=== PATIENT | female | born 1940 | race African-American/Black ===

== ENCOUNTER 2016-07-08 14:04 | Inpatient (IN) | payer OTHER ==
[~2016-07-08] VITALS: Ht 167.6 cm; Wt 107.3 kg
--- NOTE | ~2016-07-08 | HC ---
[facility] [place] [address] CONSULTATION Name: TRUDY ORTIZ Room #: 241-P [facility] IN ..#: [id number] Admission: 07/08/16 Attend Phys: Juanjo Hernandez MD Discharge: Date of : 42 Report #: [id number] THIS REPORT FOR: //name// CC: Yevgeniy Hernandez NEUROLOGY CONSULTATION HISTORY OF PRESENT ILLNESS: The patient is a 76-year-old pleasantly confused female. Neurology consult is requested because the patient has been in the hospital hallucinating. Apparently, the patient was also having some difficulty with cognition prior to hospital admission. Unfortunately, the patient is unable to provide any history, but according to the information from the medical record, the patient was admitted for confusion and delusion. She was also found to be less responsive. An arterial blood gas showed an acute hypoxic respiratory failure. At that time, the patient was not able to provide much history. Her son was present and stated that about a week or so ago, the patient had an altered mental status. At times, she was quite coherent and alert, but had an underlying mild cognitive deficit that became worse. The patient had been dealing with chronic pain and had been taking hydrocodone and Tylenol No. 3. From time to time, the patient had been completely clear and at other times she seemed very drowsy. Lab work and CT scan of the brain were unremarkable. In 2011, the patient had an MRI of the brain that showed general atrophy. PAST MEDICAL HISTORY: COPD, degenerative lumbar spinal stenosis, mild cognitive impairment, gout, ischemic heart disease, hypertension, dyslipidemia, diverticulitis, shingles and ventral hernia. PAST SURGICAL HISTORY: Three-vessel cardiac bypass, cystectomy and colectomy. MEDICATIONS: Calcium, multivitamin, aspirin 81 mg daily, fish oil, vitamin E, stool softener, ProAir, gabapentin 300 mg t.i.d., Lasix 40 mg daily, hydrocodone 5 mg p.r.n., potassium 10 mEq daily, Prilosec 20 mg daily and Norvasc 10 mg daily. ALLERGIES: LORAZEPAM, MORPHINE, IBUPROFEN and FENTANYL. PHYSICAL EXAMINATION: Vital signs: Heart rate 98, respirations 18 and blood pressure 139/84. LABORATORY DATA: White blood cell count 10.1, hemoglobin 12.4, hematocrit 40, MCV 91.5 and platelet count 242,000. Urinalysis, trace protein, 2+ leukocyte esterase and a few bacteria. Chemistry: Sodium 141, potassium 4.5, chloride 105, carbon dioxide 37, BUN 16, creatinine 0.8, GFR 85, glucose 156 and calcium 8.5. Total bilirubin 0.3, AST 29, ALT 32, alkaline phosphatase [address] [address] CONSULTATION Name: TRUDY ORTIZ Viviana Room #: 241-P ADM IN M.R.#: [id number] Admission: 07/08/16 Attend Phys: Juanjo Hernandez MD Discharge: Date of : 42 Report #: [id number]. TSH 1.797. Toxicology positive for opiates. IMAGING: CT scan of the head demonstrates no acute intracranial abnormality. NEUROLOGICAL EXAMINATION: Cranial nerves 2-12 are grossly intact. Motor exam demonstrates symmetrical strength in all 4 extremities, with tone and bulk normal. Reflexes are trace throughout. Plantar responses are flexor. Coordination demonstrates intact [id number]. Casual gait was not tested. IMPRESSION: This patient may have underlying dementia. However, the patient is on steroids, which can cause hallucinations, although I realized she was having difficulty prior to that time, but at that time, she was also hypoxic and I would like to see how she does once she is weaned from the steroids and do a more formal mini cognitive testing. The patient may eventually be a good candidate for neuropsych testing as an outpatient. At this point, I agree with psychiatry and I would not give this patient any type of sedation at all. I thank you for your kind referral of the patient and will continue to follow her with you. <ELECTRONICALLY SIGNED> By: Natty Ramirez DO 07/10/16 [id number] Natty Ramirez DO /nt
--- NOTE | ~2016-07-08 | HC ---
[facility] [address] CONSULTATION Name: TRUDY ORTIZ Room #: 241-P [facility] IN M.R.#: [id number] Admission: 07/08/16 Attend Phys: Juanjo Hernandez MD Discharge: Date of : 42 Report #: [id number] THIS REPORT FOR: //name// CC: Yevgeniy Hernandez PRIMARY CARE PHYSICIAN: Yevgeniy Mccoy MD. REFERRAL PHYSICIAN: Juanjo Hernandez MD. REASON FOR REFERRAL: Acute hypoxic respiratory failure. HISTORY OF PRESENT ILLNESS: The patient is a 76-year-old female who was admitted yesterday for confusions and delusions. This morning, she was found to be less responsive. Arterial blood gas shows an acute hypercapnic hypoxic respiratory failure. A pulmonary consultation was requested. The patient is not able to provide much history. The son who was present was able to. The patient's mental status started to change about a week or 2 ago. She was felt to be delusional. Her mentation waxes and wanes. At times, she is quite coherent and alert. The patient is felt to have mild cognitive deficit in the past. With worsening symptom, she was electively admitted yesterday. Currently, she is on noninvasive positive pressure ventilation, she is arousable, but falls to sleep quite usually. According to the son, she has also been dealing with chronic pain. She has been on hydrocodone in the past. Most recently, pain medication has been switched to Tylenol No. 3. The son denies any past history of mental status changes in the past other than recently. PAST MEDICAL HISTORY: Notable for mild cognitive disorder; chronic pain due to lumbar spinal stenosis, had been on chronic narcotics; coronary artery disease, undergoing bypass surgery in the past; ischemic cardiomyopathy; hypertension; dyslipidemia; COPD; laparotomy for diverticulitis. She has had shingles in the past. PAST SURGICAL HISTORY: As mentioned above including herniorrhaphy. ALLERGIES: To NONSTEROIDALS, MORPHINE, ATIVAN, FENTANYL, reactions unspecified. MEDICATIONS FROM HOME: Reviewed. These include hydrocodone, which was recently switched to Tylenol No. 3. She is on gabapentin, Prilosec, Norvasc, potassium supplements, aspirin and calcium supplements. FAMILY HISTORY: Noncontributory. [address] [address] CONSULTATION Name: TRUDY ORTIZ Room #: 241-P [facility] IN .R.#: [id number] Admission: 07/08/16 Attend Phys: Juanjo Hernandez MD Discharge: Date of : 42 Report #: [id number] SOCIAL HISTORY: The patient has smoked, but quit recently. She lives with her son. There is no history of alcohol use. REVIEW OF SYSTEMS: Deferred as the patient is quite somnolent at this moment. PHYSICAL EXAMINATION: VITAL SIGNS: Temperature is 98.9 degrees Fahrenheit, pulse is 89, respiratory rate is 20, blood pressure 148/60 mmHg, saturation is 95%. HEENT: Normocephalic, atraumatic. NECK: Supple, without any lymphadenopathy or thyromegaly. CHEST: Breath sounds are decreased due to poor effort. CARDIOVASCULAR: Heart sounds are distant. No obvious murmurs or gallop. Pulses are 2+/4+ bilaterally. BREASTS: Deferred. ABDOMEN: Obese, soft, nontender, no organomegaly or masses felt. GENITOURINARY AND RECTAL: Deferred. EXTREMITIES: There is no edema, cyanosis or clubbing. LABORATORY DATA: CT head performed on this admission was unremarkable other than chronic findings. Chest x-ray was remarkable for cardiomegaly, possible left lower lobe infiltrate and atelectasis. Left hemidiaphragm has been chronically elevated noted in the prior chest x-rays. TSH 1.79. Electrolytes are normal. Liver function test is unremarkable. WBC , hemoglobin is 12.4, platelets are normal. Arterial blood gas revealed pH 7.19, pCO2 96, pO2 80 on 4 liters of O2. IMPRESSION: 1. Acute on chronic hypercapnic hypoxic respiratory failure in this 76-year-old female. Etiology is secondary to encephalopathy of determined etiology. She has a history of chronic obstructive pulmonary disease. 2. History of chronic obstructive pulmonary disease with presumed exacerbation. 3. Encephalopathy, with profound hypersomnolence, etiology unclear. The patient has been on chronic narcotics. At present, she is arousable, but falls asleep easily. Neurology has been consulted. 4. Coronary artery disease with ischemic cardiomyopathy. 5. Chronic pain due to lumbar spinal stenosis, had been on chronic narcotics. 6. Hypertension. 7. Gout. RECOMMENDATION: We will continue noninvasive positive pressure ventilation. Because of her mental status and profound hypercapnia, I would recommend further transfer to the ICU for closer monitoring. We will repeat arterial blood gas to assure that gas exchange does improve over time. Chest x-rays suggest possible infiltrates. I think it is reasonable to start [facility] [address] [place] [address] CONSULTATION Name: TRUDY ORTIZ Room #: 241-P [facility] IN .R.#: [id number] Admission: 07/08/16 Attend Phys: Juanjo Hernandez MD Discharge: Date of : 42 Report #: [id number] broad spectrum antibiotics given acute respiratory failure. DVT and GI prophylaxis will be initiated. Thank you for the consultation. By: 1140 [id number] Sean Crews MD /nt
--- NOTE | ~2016-07-08 | D ---
[facility] [place] [address] DISCHARGE SUMMARY Name: TRUDY ORTIZ Room #: 435-P [facility] IN .R.#: [id number] Admission: 07/08/16 Attend Phys: Juanjo Hernandez MD Discharge: 07/12/16 Date of : 42 Report #: [id number] THIS REPORT FOR: //name// CC: Yevgeniy Hernandez FINAL DIAGNOSES: 1. Acute hypercapnic respiratory failure. 2. Chronic obstructive pulmonary disease exacerbation. 3. Hypertension. 4. Metabolic encephalopathy. 5. Senile dementia with delusions. HOSPITAL COURSE: The patient was admitted for evaluation of confusion and delusions at home. She was found to be confused and somewhat somnolent. ABG was obtained confirming hypercapnic respiratory failure. She was transferred to ICU and treated with BiPAP. Overnight, she became very active dictated and restless. She was screaming at the staff. She felt threatened and wanted to leave the facility. Security was called, and she received Haldol. This calmed her through the night. The neurology and psych services followed her as well. She was placed on low dose of Risperdal at bedtime for delusions related to, what we felt as, underlying dementia. Her respiratory status improved and BiPAP was discontinued. She was kept on 2 liters nasal cannula. The next night, she had roughly night as well; however, by the third night, she had moved out of ICU to telemetry, and her mental status was improved. She was oriented to place, and she recognized her doctors; however, she was confused as to why she was there and the year, but she was pleasant. She was working with therapies. She had no other interval medical complications. DISPOSITION: I signed her transfer orders to go out to [facility] for rehabilitation. I have advised her and family that following this, she will need to live in a and supervised 24-hour day environment. There is baseline dementia, underlying and Aricept has been added. DISCHARGE MEDICATIONS: She will stay on low dose Risperdal for 2 weeks and then consider taper down to 0.25 mg, hydrocodone, Tylenol No. 3, and gabapentin have all been discontinued. <ELECTRONICALLY SIGNED> By: Juanjo Hernandez MD 07/15/16 1217 1624 1745 Juanjo Hernandez MD /nt
--- NOTE | ~2016-07-08 | H ---
[facility] [place] [address] HISTORY AND PHYSICAL Name: TRUDY ORTIZ Room #: 241-P [facility] IN M.R.#: [id number] Admission: 07/08/16 Attend Phys: Juanjo Hernandez MD Discharge: Date of : 42 Report #: [id number] THIS REPORT FOR: //name// CC: Yevgeniy Hernandez DATE OF SERVICE: 07/08/2016 CHIEF COMPLAINT: Confusion and delusions. HISTORY OF PRESENT ILLNESS: The patient is a 76-year-old female, who was admitted from home for evaluation of recent confusion and delusions. She was seen in the office about a week ago for followup where her son is reporting that she is experiencing some delusions at home. She apparently has missed interpreting or representing what she sees or hears on TV. She seems confused at times, but on the day she was seen by Dr. Mccoy, in the office on 07/03/2016, seemed completely clear. Symptoms seemed to wax and wane according to reviewing the history. There was a concern that there is a neurologic process or vascular process play, as she has also had a history of some mild cognitive deficit. She has been admitted for medical workup and evaluation. However, overnight, she was noted to be hypoxic, and this morning, she seems very drowsy and hard for her to arouse to speak clearly. Initial lab and CT of the brain were unremarkable. PAST MEDICAL HISTORY: COPD, degenerative lumbar spinal stenosis with arthritic component, mild cognitive impairment with MRI in 2011 showing general atrophy, gout, ischemic heart disease with history of 3-vessel cardiac bypass years ago, hypertension, dyslipidemia, cystectomy, diverticulitis treated surgically, about 3 years ago. She had a history of shingles, history of ventral hernia. PAST SURGICAL HISTORY: As above. FAMILY HISTORY: Noncontributory. SOCIAL HISTORY: She is a former smoker, none recently, lives at home with her son. No chronic alcohol use. ALLERGIES: IBUPROFEN, MORPHINE, ATIVAN, and FENTANYL. MEDICATIONS: Calcium, multivitamin, aspirin 81 mg, fish oil, vitamin E, stool softener, ProAir, gabapentin 300 mg t.i.d., Lasix 40 mg, hydrocodone 5 mg, potassium 10 mEq, Prilosec 20 mg, Norvasc 10 mg. REVIEW OF SYSTEMS: She really could not be awakened to provide a review. PHYSICAL EXAMINATION: [facility] [address] [place] [address] HISTORY AND PHYSICAL Name: TRUDY ORTIZ Room #: 241-P [facility] IN .R.#: [id number] Admission: 07/08/16 Attend Phys: Juanjo Hernandze MD Discharge: Date of : 42 Report #: [id number] VITAL SIGNS: Temperature of 37.2, pulse of 89, respirations 20, blood pressure of 148/60, O2 sat 95% on 5 liters nasal cannula. GENERAL: She was asleep, marginally arousable, seemed to open her eyes, and tried to mumble some words with verbal stimulation. HEAD AND NECK: Unremarkable. LUNGS: Clear anteriorly, weak effort. HEART: Regular. No murmur. ABDOMEN: Obese, soft, and normoactive bowel sounds. EXTREMITIES: No cyanosis, clubbing, or edema. NEUROLOGIC: She seems to move all extremities spontaneously, but could not really get her to follow any type of neuro exam. We reviewed her nursing notes from overnight. Apparently, she was desaturating when she was asleep and tends to mouth breathe; however, at about 10 o'clock last night, she did wake up and spoke clearly to the nurse, and she got up and walked with some assistance to the commode. She seemed disoriented, but pleasant and was able to get up and move. ASSESSMENT: 1. Metabolic encephalopathy. 2. Chronic obstructive pulmonary disease. 3. Hypoxia. 4. Delusions. 5. Hypertension. 6. Lumbar spinal stenosis with chronic pain. 7. Coronary artery disease. PLAN: Initial lab and urine and CT head were unremarkable. I will ask for an MRI to rule out small recent stroke. I have asked neurology to see her. Other concern would be related to sleep apnea or hypercapnic respiratory failure issue with her underlying COPD and an ABG and pulmonary consult have been ordered as well. <ELECTRONICALLY SIGNED> By: Juanjo Hernandez MD 07/09/16 1506 0950 1124 Juanjo Hernandez MD /nt
[~2016-07-08 14:04] MED LIST: ACIDOPHILUS LA1 EACH PO; ADULT LOW DOSE81 MG PO; AMLODIPINE BESY10 MG PO; AMLODIPINE BESYL5 MG PO; ASMANEX0.135 GM IH; AUGMENTIN 500-1 EACH PO; BENAZEPRIL HCL40 MG PO; CALCITRATE200 MG PO; CARAFATE1 GM PO; CIPRO500 MG PO; CO Q-1010 MG PO; CO Q-10100 MG PO; COLACE 100 MG100 MG PO; CRESTOR20 MG PO; CYMBALTA30 MG PO; DICLOFENAC SODI75 MG PO; DICLOFENAC-MIS1 EAC1 PO; ENDOCET 10-3251 EACH PO; FENTANYL PA12 MCG/HR TP; FENTANYL PA25 MCG/HR TP; FENTANYL PA50 MCG/HR TP; FLAGYL500 MG PO; FOLIC ACID PO; FOLIC ACID0.4 MG PO; GABAPENTIN; GABAPENTIN 100100 MG PO; HYDRALAZINE 2525 MG PO; HYDROCODON-ACE1 EAC5 PO; HYDROCODONE-AP1 EAC6 PO; HYDROCODONE-APA1 TA1 PO; K-DUR10 MEQ PO; LANSOPRAZOLE30 MG PO; LASIX 40 MG TAB40 M1 PO; LIPITOR10 MG PO; LIPITOR20 MG PO; LISINOPRIL10 MG PO; LISINOPRIL30 MG PO; LISINOPRIL40 MG PO; LOPRESSOR PO; METHADONE HCL5 MG PO; METHOTREXATE 22.5 MG PO; MIRALAX255 GM PO; MISOPROSTOL 2200 MC1 PO; MOBIC7.5 M1 PO; MULTIVITAMINS PO; NEPHROCAPS SOFT1 CAP PO; NUCYNTA75 MG PO; OMEPRAZOLE; OMEPRAZOLE20 M2 PO; OXYCODONE HCL5 M1 PO; OXYCODONE-ACET1 EAC2 PO; OXYCODONE-APAP1 EAC6 PO; OXYCONTIN10 M1; OXYCONTIN10 M1 PO; OXYCONTIN15 MG PO; OXYCONTIN20 M1 PO; PERCOCET 10-321 EACH PO; PREDNISONE 2.52.5 M1 PO; PREDNISONE 5 MG5 M1 PO; PROAIR HFA8.5 GM INH; SENOKOT-S1 TA1 PO; TOPROL XL50 MG PO; TRAMADOL 50 MG50 MG PO; UNICOMPLEX M TA1 TA1 PO; VITAMIN C100 M1 PO; VITAMIN D 5050000 I1 PO; VITAMIN E400 UNIT PO; VITAMIN E800 UNIT PO; ZANTAC 150MG T150 MG PO; ZOFRAN ODT4 MG PO; ZOVIRAX400 MG PO
[2016-07-08 15:00] VITALS: BP 143/67
[2016-07-08] MEDS ORDERED: OMEPRAZOLE 20 M20 M1 PO (18:11)
[2016-07-08 19:25] VITALS: BP 152/55
[2016-07-08 19:29] LABS: BASOPHILS 0.7 % (0.0-2.0); EOSINOPHILS 3.9 % (0.0-3.0); HEMATOCRIT 38.9 % (37.0-47.0); HEMOGLOBIN 12.5 gm/dL (12.0-15.0); LYMPHOCYTES 21.1 % (24.0-44.0); MCH 28.8 pg (26.0-34.0); MCV 89.9 fL (80.0-100.0); PLATELET COUNT 216 thou/uL (150-400); POLYS 67.3 % (36.0-66.0); RBC 4.33 mil/uL (4.20-5.00); RDW 15.8 % (10.5-14.5); WBC 7.4 thou/uL (4.0-11.0)
[2016-07-08 19:35] LABS: MANUAL DIFF NO
[2016-07-08 20:22] LABS: ALBUMIN 3.3 g/dL (3.4-5.0); CALCIUM 8.6 mg/dL (8.5-10.1); CREATININE 0.9 mg/dL (0.6-1.0); POTASSIUM 4.2 mmol/L (3.5-5.1); TOTAL BILIRUBIN 0.3 mg/dL (<0.1-1.0)
[2016-07-08 22:15] LABS: URINE BILIRUBIN NEGATIVE (Negative); URINE BLOOD NEGATIVE (Negative); URINE COLOR YELLOW; URINE GLUCOSE-RANDOM* NEGATIVE (Negative); URINE KETONES NEGATIVE (Negative); URINE LEUKOCYTES-REFLEX 2+ (Negative); URINE PROTEIN (DIPSTICK) TRACE (Negative); URINE SPECIFIC GRAVITY 1.025 (1.003-1.035); URINE UROBILINOGEN 0.2 E.U./dl (0.2-1.0)
[2016-07-08 22:28] LABS: CASTS None Seen /LPF (None Seen); CRYSTALS None Seen /LPF (None Seen); SQUAMOUS 0-3 Few /LPF (0-3); URINE RBC None Seen /HPF (0-2); URINE WBC-REFLEX 6-15 Few /HPF (0-5)
[2016-07-08 23:17] VITALS: BP 144/56
[2016-07-09] VITALS (22 sets, daily range): BP systolic 115–168; BP diastolic 56–88
[2016-07-09 06:39] LABS: HEMOGLOBIN 12.4 gm/dL (12.0-15.0); MCH 28.4 pg (26.0-34.0); MCHC 31.1 g/dL (28.0-37.0); MCV 91.5 fL (80.0-100.0); RBC 4.37 mil/uL (4.20-5.00); RDW 15.1 % (10.5-14.5); WBC 10.1 thou/uL (4.0-11.0)
[2016-07-09 06:53] LABS: CALCIUM 8.5 mg/dL (8.5-10.1); CREATININE 0.8 mg/dL (0.6-1.0); POTASSIUM 4.5 mmol/L (3.5-5.1)
[2016-07-09 10:24] LABS: ABG SAMPLE TYPE ARTERIAL; BE(vivo) 5.2 mmol/L (-2 to +3); HCO3 36.7 mmol/L (22.0-26.0); LACTATE 1.24 mmol/L (0.5-2.0); O2(CT) 17.8 mL/dL (15.0-23.0); O2Hb 93.3 % (92.0-98.0); PCO2 96.5 mmHg (35.0-45.0); PO2 80.7 mmHg (80.0-100.0); STICK SITE R.RADIAL; pH 7.198 (7.360-7.450); sO2 92.3 % (92.0-98.0); tCO2 39.7 mmol/L (24.0-30.0)
[2016-07-09 11:01] LABS: TROPONIN-I 0.05 ng/mL (<0.04-0.07)
[2016-07-09 13:21] LABS: ABG SAMPLE TYPE ARTERIAL; HCO3 32.1 mmol/L (22.0-26.0); LACTATE 1.26 mmol/L (0.5-2.0); O2(CT) 16.8 mL/dL (15.0-23.0); O2Hb 93.7 % (92.0-98.0); PO2 75.7 mmHg (80.0-100.0); sO2 93.4 % (92.0-98.0); tCO2 34.1 mmol/L (24.0-30.0)
[2016-07-09 13:22] LABS: ABG COMMENT BIPAP 14/6; STICK SITE R.RADIAL; pH 7.305 (7.360-7.450)
[2016-07-09 14:01] LABS: AMP/METHAMP Negative (Negative); BARBITURATES Negative (Negative); BENZODIAZEPINES Negative (Negative); COCAINE Negative (Negative); METHADONE Negative (Negative); OPIATES POSITIVE (Negative); PCP Negative (Negative); THC Negative (Negative)
[2016-07-10] VITALS (13 sets, daily range): BP systolic 109–175; BP diastolic 47–95
[2016-07-10 04:01] LABS: ABG SAMPLE TYPE ARTERIAL; BE(vivo) 3.8 mmol/L (-2 to +3); LACTATE 1.95 mmol/L (0.5-2.0); O2(CT) 17.7 mL/dL (15.0-23.0); O2Hb 95.8 % (92.0-98.0); PCO2 46.1 mmHg (35.0-45.0); PO2 84.7 mmHg (80.0-100.0); pH 7.417 (7.360-7.450); sO2 96.5 % (92.0-98.0); tCO2 30.4 mmol/L (24.0-30.0)
[2016-07-10 04:02] LABS: STICK SITE L.RADIAL
[2016-07-10 05:55] LABS: HEMOGLOBIN 12.3 gm/dL (12.0-15.0); MCH 28.5 pg (26.0-34.0); MCHC 31.4 g/dL (28.0-37.0); MCV 90.8 fL (80.0-100.0); RBC 4.3 mil/uL (4.20-5.00); RDW 15.2 % (10.5-14.5); WBC 7.1 thou/uL (4.0-11.0)
[2016-07-10 06:07] LABS: CREATININE 0.8 mg/dL (0.6-1.0); POTASSIUM 4.2 mmol/L (3.5-5.1)
[2016-07-11 05:24] VITALS: BP 173/84
[2016-07-11 08:00] VITALS: BP 152/83
[2016-07-11 16:00] VITALS: BP 159/72
[2016-07-11 19:48] VITALS: BP 120/57
[2016-07-12 03:45] VITALS: BP 152/74
[2016-07-12 06:26] LABS: HEMATOCRIT 40.8 % (37.0-47.0); MCH 29.1 pg (26.0-34.0); MCHC 31.9 g/dL (28.0-37.0); MCV 91.3 fL (80.0-100.0); RBC 4.47 mil/uL (4.20-5.00); RDW 15.4 % (10.5-14.5); WBC 6.8 thou/uL (4.0-11.0)
[2016-07-12 06:37] LABS: CALCIUM 8.7 mg/dL (8.5-10.1); CREATININE 0.8 mg/dL (0.6-1.0); POTASSIUM 4.5 mmol/L (3.5-5.1)
[2016-07-12 08:00] VITALS: BP 121/62
[2016-07-12] MEDS ORDERED: ARICEPT 5 MG TAB5 MG PO (09:20)
[2016-07-12] MEDS ORDERED: DOXYCYCLINE 10100 MG PO (09:20)
[2016-07-12] MEDS ORDERED: DUONEB 2.5-0.5 M3 ML INH (09:21)
[2016-07-12] MEDS ORDERED: RISPERIDONE0.5 MG PO (09:21)
[2016-07-12] MEDS ORDERED: PREDNISONE 20 M20 MG PO (09:22)
== END 2016-07-12 17:50 | DRG 189 ==
LOC: 4S 14:04 → ICU 07-09 13:03 → 4S 07-10 14:18
PROVIDERS: Internal Medicine; Internal Medicine Geriatric Medicine; Internal Medicine Pulmonary Disease
PROC: 5A09357 Assistance with Respiratory Ventilation, Less than 24 Consecutive Hours, Continuous Positive Airway Pressure (ICD-10-PCS; principal; 2016-07-09)
DX: J96.22 Acute and chronic respiratory failure with hypercapnia (principal); G93.41 Metabolic encephalopathy; J44.1 Chronic obstructive pulmonary disease with (acute) exacerbation; J96.21 Acute and chronic respiratory failure with hypoxia; G89.29 Other chronic pain; I25.10 Atherosclerotic heart disease of native coronary artery without angina pectoris; I25.5 Ischemic cardiomyopathy; I10 Essential (primary) hypertension; E78.5 Hyperlipidemia, unspecified; M48.06 Spinal stenosis, lumbar region; M10.9 Gout, unspecified; F03.90 Unspecified dementia, unspecified severity, without behavioral disturbance, psychotic disturbance, mood disturbance, and anxiety; F22 Delusional disorders; M54.9 Dorsalgia, unspecified; G47.10 Hypersomnia, unspecified; Z95.1 Presence of aortocoronary bypass graft; Z90.6 Acquired absence of other parts of urinary tract; Z90.49 Acquired absence of other specified parts of digestive tract; Z79.891 Long term (current) use of opiate analgesic; Z88.5 Allergy status to narcotic agent; Z88.8 Allergy status to other drugs, medicaments and biological substances
CPT/HCPCS: 10102; 10204

== ENCOUNTER 2016-10-21 11:20 | Inpatient (IN) | payer OTHER | END 2016-10-24 16:23 | DRG 552 | LOC: 4N 11:20 | DX: M48.06 Spinal stenosis, lumbar region (principal); M87.052 Idiopathic aseptic necrosis of left femur; M54.16 Radiculopathy, lumbar region; I10 Essential (primary) hypertension; K57.90 Diverticulosis of intestine, part unspecified, without perforation or abscess without bleeding; I25.10 Atherosclerotic heart disease of native coronary artery without angina pectoris; J44.9 Chronic obstructive pulmonary disease, unspecified; G31.84 Mild cognitive impairment of uncertain or unknown etiology; M54.5 Low back pain; G89.29 Other chronic pain; Z90.49 Acquired absence of other specified parts of digestive tract; Z95.1 Presence of aortocoronary bypass graft; Z88.5 Allergy status to narcotic agent; Z88.8 Allergy status to other drugs, medicaments and biological substances ==

== ENCOUNTER 2016-12-17 12:01 | Inpatient (IN) | payer OTHER ==
[~2016-12-17] VITALS: Ht 167.6 cm; Wt 110.7 kg
--- NOTE | ~2016-12-17 | D ---
[facility] [place] [address] DISCHARGE SUMMARY Name: TRUDY ORTIZ Room #: 353-P [facility] IN ..#: [id number] Admission: 12/17/16 Attend Phys: Juanjo Hernanedz MD Discharge: 12/26/16 Date of : 42 Report #: [id number] THIS REPORT FOR: //name// CC: Yevgeniy Hernandez DATE OF SERVICE: 12/26/2016 FINAL DIAGNOSES: 1. Acute hypercapnic respiratory failure. 2. Chronic obstructive pulmonary disease. 3. Asthma exacerbation. 4. 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 5. Hypertension. 6. Mild encephalopathy. 7. Mild dementia. HOSPITAL COURSE: The patient was admitted from home with confusion and shortness of breath. She was diagnosed with acute hypercapnic respiratory failure related to probable asthma exacerbation, underlying COPD. She initially tried BiPAP for a few hours the first night. Pulmonary service was consulted and steroids, nebulized treatments and antibiotics were ordered. Gradually, her mental status improved after the first couple of nights. Unfortunately, she was resistant, not tolerant to BiPAP or CPAP therapy. It was noted in the past as far back as 2002, she was recommended for CPAP with the settings of 12 at that time, but has not been compliant or able to tolerate it and has really not been using anything at home per her report, various settings of BiPAP were tried which she was unable to tolerate. Gradually her situation improved and she was working with physical therapy. DISPOSITION: She will transfer to [facility]. I signed her transfer orders and medications. Follow up with Pulmonary as an outpatient for further consideration of a sleep study. By: [id number] Juanjo Hernandez MD /nt
--- NOTE | ~2016-12-17 | EEG ---
[facility] [place] [address] ELECTROENCEPHALOGRAM Name: TRUDY ORTIZ Room #: 353-P [facility] IN M.R.#: [id number] Admission: 12/17/16 Attend Phys: Juanjo Hernandez MD Discharge: 12/26/16 Date of : 42 Report #: [id number] THIS REPORT FOR: //name// CC: Yevgeniy Hernandez DATE OF SERVICE: 12/20/2016 This patient is being evaluated for altered mental status. EEG was done by placing the electrodes by standard 10-20 system of electrode placement. Both referential and sequential montages were used for recording. Background activity in this patient's EEG is about 9 Hz and 30 microvolt. It is intermixed with theta range slowing on both sides. The patient became drowsy and goes to sleep, does associated with bilateral slowing and vertex sharp waves. Throughout the record, no active epileptiform activity was noticed. IMPRESSION: This patient's EEG is intermixed with theta range slowing on both sides. It is a nonspecific abnormality, which can occur with encephalopathy, effect of psychotropic medication, dementia, etc. Clinical correlation is recommended. Thank you very much for referral. <ELECTRONICALLY SIGNED> By: Abhi Byrne MD 12/31/16 1708 1250 [id number] Abhi Byrne MD /nt
--- NOTE | ~2016-12-17 | HC ---
[facility] [place] [address] CONSULTATION Name: TRUDY ORTIZ Room #: 206-P ADM IN M.R.#: [id number] Admission: 12/17/16 Attend Phys: Octavio Valdez DO Discharge: Date of : 42 Report #: [id number] THIS REPORT FOR: //name// CC: Ramin Valdez DATE OF SERVICE: 12/17/2016 REFERRING PROVIDER: Ramin Mccoy MD. REASON FOR CONSULTATION: COPD exacerbation. CHIEF COMPLAINT: Shortness of breath. HISTORY OF PRESENT ILLNESS: Our group was asked to see the patient in consultation while hospitalized at [facility], a pleasant 76-year-old woman with a past pulmonary history by report of COPD, a bit of a difficult historian, suspect she may be on some chronic O2 at home, but was found by [employer] off oxygen and some respiratory distress and confused, brought to the Emergency Department, underwent CT scan of the head, which was unrevealing. A chest x-ray was relatively clear as well. The patient notes no cough, but has had some shortness of breath and wheezing. Denies any fevers, chills or sweats. ALLERGIES: Include LORAZEPAM, MORPHINE, IBUPROFEN, FENTANYL. PAST MEDICAL HISTORY: 1. History of COPD, severity not quantified. 2. History of hypertension. 3. Lumbar spinal stenosis. 4. History of diverticulitis with partial sigmoid resection. 5. Mild dementia. 6. Coronary artery disease, status post 3-vessel bypass. SOCIAL HISTORY: Currently, lives alone at home, but son checks on her twice daily. No alcohol consumption or tobacco consumption at this time. FAMILY HISTORY: Unknown. This patient is unable to give history at this time. REVIEW OF SYSTEMS: CONSTITUTIONAL: The patient notes no fevers. ENT: Denies any upper respiratory congestion, dysphagia. CARDIOVASCULAR: Notes no chest pain or palpitations. GASTROINTESTINAL: No nausea, vomiting, abdominal pain or diarrhea. GENITOURINARY: Denies any dysuria, frequency or hematuria. [facility] [address] [place] [address] CONSULTATION Name: TRUDY ORTIZ Viviana Room #: [facility] IN ..#: [id number] Admission: 12/17/16 Attend Phys: Octavio Valdez DO Discharge: Date of : 42 Report #: [id number] INTEGUMENT: Denies any new rash. MUSCULOSKELETAL: Some chronic debilitation and weakness and chronic pain particularly in the knees and back. PHYSICAL EXAMINATION: VITAL SIGNS: Afebrile, pulse 70, respiratory rate 22, blood pressure /72 and oxygen saturation 94% on 3 liters. GENERAL: This is an obese, elderly woman in no distress, somewhat confused. ENT: Clear oropharynx, Mallampati 3. No thrush noted. NECK: Supple, no lymphadenopathy. LUNGS: Diminished with diffuse expiratory wheezes. Respirations mildly labored at rest. CARDIOVASCULAR: Heart was tachycardic, but regular. No murmurs noted. ABDOMEN: Obese, soft, nontender, no masses, no hepatosplenomegaly. EXTREMITIES: Warm, 2+ pulses noted in the upper and lower extremities with no significant edema appreciated. LABORATORY DATA: CBC was normal. Chemistry profile normal except for mildly elevated CO2 of 40, albumin 3.0 and TSH normal. Arterial blood gas done on BiPAP 16/6, FiO2 50% revealed pH 7.33, pCO2 of 80, pO2 of 106, bicarbonate 41. Chest x-ray as described in HPI. IMPRESSION: 1. Chronic obstructive pulmonary disease with acute exacerbation, suspect probable viral illness related. 2. Cfaxi-af-hyuxmer hypercapnic and hypoxemic respiratory failure. 3. History of coronary artery disease. 4. Confusion with normal CT head this evening. SUGGESTIONS: 1. Systemic steroid taper. 2. Nasal swab for respiratory viral panel. 3. Rapid influenza screen. 4. Continue with bronchodilators. 5. Encouraged the patient to wear BiPAP at least with sleep. 6. Continue Rocephin and azithromycin. 7. We will follow along. Thank you for requesting our suggestions. By: [id number] Romaine Donnelly MD /nt
--- NOTE | ~2016-12-17 | H ---
[facility] [place] [address] HISTORY AND PHYSICAL Name: TRUDY ORTIZ Room #: 206-P ADM IN M.R.#: [id number] Admission: 12/17/16 Attend Phys: Juanjo Hernandez MD Discharge: Date of : 44 Report #: [id number] THIS REPORT FOR: //name// CC: Yevgeniy Hernandez DATE OF SERVICE: 12/17/2016 CHIEF COMPLAINT: Confusion. HISTORY OF PRESENT ILLNESS: The patient is a 76-year-old female brought to the emergency room from her home via ambulance with reports of confusion and visual hallucinations, which began earlier in the day. EMS was activated by local police who were called after she reported an intruder alarm. The police noted that she was confused and disoriented and EMS confirmed this. She was having visual hallucinations of people in her home. Her son reported that she has had intermittent episodes like this over the years. There were reports of prior hospitalization with hypercapnic respiratory failure contributing to this issue in the past as well. Her initial workup considered this possibility as well. PAST MEDICAL HISTORY: COPD, coronary artery disease with cardiac bypass in 1997, asthma, hypertension, avascular necrosis of the left hip, chronic low back pain due to degenerative disk disease, history of [place] in 2014, she had a partial sigmoid resection due to diverticulosis and fistula in 2014, and she has had a lap willard. PAST SURGICAL HISTORY: As above. FAMILY HISTORY: Noncontributory. SOCIAL HISTORY: No current alcohol or tobacco use. She lives with her son, but she is alone during the day. ALLERGIES: IBUPROFEN, ATIVAN, MORPHINE, and FENTANYL. MEDICATIONS: Potassium, Lasix, Moriarty, gabapentin, Aricept, and DuoNeb. REVIEW OF SYSTEMS: She denies headache, chest pain, shortness of breath, abdominal pain, nausea, vomiting, diarrhea, constipation, dysuria, or syncope. OBJECTIVE: VITAL SIGNS: Temperature 36.6, pulse , respirations 18, blood pressure , O2 sat 98% on 2 liters of oxygen. GENERAL: She is awake and alert. HEAD AND NECK: Unremarkable. LUNGS: Clear. [facility] [address] [place] [address] HISTORY AND PHYSICAL Name: TRUDY ORTIZ Room #: 206-P [facility] IN M.R.#: [id number] Admission: 12/17/16 Attend Phys: Juanjo Hernandez MD Discharge: Date of : 44 Report #: [id number] HEART: Regular. ABDOMEN: Obese, soft, normoactive bowel sounds. EXTREMITIES: No edema. NEUROLOGIC: Cranial nerves intact. Speech is fluent. She knew me by name and recognized her surroundings. All lab and x-ray data were reviewed in consultation notes. ASSESSMENT: 1. Hypercapnic acute respiratory failure. 2. Chronic obstructive pulmonary disease. 3. Asthma. 4. Hypertension. 5. Chronic low back pain. 6. Mild senile dementia. PLAN: She will continue medical treatment with respiratory support. We will see if she has any need for BiPAP or CPAP at home, it appears that she has had trouble tolerating it in the past. <ELECTRONICALLY SIGNED> By: Juanjo Hernandez MD 12/19/16 1127 [id number] Juanjo Hernandez MD /nt
--- NOTE | ~2016-12-17 | EKG ---
[address] [address] ELECTROCARDIOGRAM REPORT Name: EUN ORTIZDANIEL Michelle Room #: 247-[facility] IN M.R.#: [id number] Admission: 12/17/16 Attend Phys: Juanjo Hernandez MD Discharge: Date of : 44 Report #: [id number] THIS REPORT FOR: //name// [facility] Test Date: 2016-12-19 Test Time: 15:57:09 Pat Name: TRUDY ORTIZ Department: Room: [facility] Gender: F Router Operator Radial: Chriss CORONADO : 1940 Requested By: Romaine Donnelly Order Number: [id number] MD: Sebastian Anderson Measurements Intervals [place] Rate: 75 P: 48 [place]: 222 QRS: 22 QRSD: 97 T: 14 QT: 375 QTc: 419 Interpretive Statements Sinus rhythm Prolonged [place] interval Abnormal R-wave progression, late transition Left ventricular hypertrophy Compared to ECG 04/14/2015 04:08:15 Left ventricular hypertrophy now present Myocardial infarct finding no longer present Electronically Signed On 12-20-2016 8:19:37 CDT by Sebastian Anderson [email or web address] <ELECTRONICALLY SIGNED> By: Sebastian Anderson MD 12/20/16 0819 [id number] [id number] Sebastian Anderson MD /EPI
[~2016-12-17 12:01] MED LIST changes: +ARICEPT 5 MG TAB5 MG PO; +DEXAMETHASONE 22 M1 PO; +DOXYCYCLINE 10100 MG PO; +DUONEB 2.5-0.5 M3 ML INH; +NEURONTIN 300300 M1 PO; +OMEPRAZOLE 20 M20 M1 PO; +PREDNISONE 20 M20 MG PO; +RISPERIDONE0.5 MG PO
[2016-12-17 12:04] VITALS: BP 107/65
[2016-12-17 13:16] LABS: HEMATOCRIT 37.6 % (37.0-47.0); HEMOGLOBIN 12.2 gm/dL (12.0-15.0); MCH 30.5 pg (26.0-34.0); MCHC 32.5 g/dL (28.0-37.0); MCV 93.9 fL (80.0-100.0); RBC 4.01 mil/uL (4.20-5.00); RDW 13.9 % (10.5-14.5); WBC 7.2 thou/uL (4.0-11.0)
[2016-12-17 13:26] LABS: ANION GAP 1 mmol/L (7-16); BUN 10 mg/dL (7-18); CALCIUM 9.2 mg/dL (8.5-10.1); CHLORIDE 100 mmol/L (98-107); CO2 40 mmol/L (21-32); CREATININE 0.8 mg/dL (0.6-1.0); GLUCOSE 111 mg/dL (74-106); POTASSIUM 3.6 mmol/L (3.5-5.1); SODIUM 141 mmol/L (136-145)
[2016-12-17 13:31] LABS: ALKALINE PHOSPHATASE 84 U/L (46-116); MAGNESIUM 1.8 mg/dL (1.8-2.4); SALICYLATE < 2.8 mg/dL (2.8-20.0); SGOT 23 U/L (15-37); SGPT 26 U/L (30-65); TOTAL BILIRUBIN 0.5 mg/dL (<0.1-1.0); TOTAL PROTEIN 6.7 g/dL (6.4-8.2)
[2016-12-17 13:48] LABS: ACETAMINOPHEN < 2 ug/mL (10-30)
[2016-12-17 14:26] LABS: URINE BILIRUBIN NEGATIVE (Negative); URINE BLOOD NEGATIVE (Negative); URINE COLOR YELLOW; URINE GLUCOSE-RANDOM* NEGATIVE (Negative); URINE KETONES NEGATIVE (Negative); URINE LEUKOCYTES-REFLEX NEGATIVE (Negative); URINE PROTEIN (DIPSTICK) 2+ (Negative); URINE SPECIFIC GRAVITY 1.015 (1.003-1.035); URINE UROBILINOGEN 0.2 E.U./dl (0.2-1.0)
[2016-12-17 14:43] LABS: ABG SAMPLE TYPE ARTERIAL; BE(vivo) 11.8 mmol/L (-2 to +3); LACTATE 1.07 mmol/L (0.5-2.0); O2(CT) 14.1 mL/dL (15.0-23.0); O2Hb VENOUS 75.2 (65.0-85.0); PCO2 VENOUS 69.9 mmHg (41.0-51.0); PO2 VENOUS 42.9 mmHg (35.0-45.0); STICK SITE LINE; sO2 VENOUS 75.5 % (65.0-85.0); tCO2 42.1 mmol/L (24.0-30.0)
[2016-12-17 14:44] LABS: HYALINE CASTS >10 Many /LPF (None Seen); SQUAMOUS 4-10 Moderate /LPF (0-3)
[2016-12-17 14:45] LABS: AMORPHOUS URATES Few /LPF (None Seen); URINE RBC 0-2 Rare /HPF (0-2); URINE WBC-REFLEX 6-15 Few /HPF (0-5)
[2016-12-17] MEDS ORDERED: TRAMADOL 50 MG50 MG PO ×2 (15:26→18:46)
[2016-12-17 15:59] LABS: ABG SAMPLE TYPE ARTERIAL; HCO3 40.6 mmol/L (22.0-26.0); LACTATE 1.05 mmol/L (0.5-2.0); O2(CT) 19.1 mL/dL (15.0-23.0); O2Hb 96.2 % (92.0-98.0); PO2 105.6 mmHg (80.0-100.0); sO2 97.2 % (92.0-98.0); tCO2 43.1 mmol/L (24.0-30.0)
[2016-12-17 16:01] LABS: PCO2 79.7 mmHg (35.0-45.0); Pressure Support 16 cm H20; STICK SITE R.RADIAL; pH 7.325 (7.360-7.450)
[2016-12-17 17:38] VITALS: BP 156/72
[2016-12-17] MEDS ORDERED: MELATONIN1 MG PO (18:44)
[2016-12-17 19:45] VITALS: BP 161/77
[2016-12-17 23:43] VITALS: BP 134/74
[2016-12-18 03:18] LABS: HEMATOCRIT 39.4 % (37.0-47.0); HEMOGLOBIN 12.5 gm/dL (12.0-15.0); MCH 30.3 pg (26.0-34.0); MCHC 31.7 g/dL (28.0-37.0); MCV 95.7 fL (80.0-100.0); RBC 4.12 mil/uL (4.20-5.00); RDW 13.8 % (10.5-14.5); WBC 5.8 thou/uL (4.0-11.0)
[2016-12-18 03:25] LABS: CALCIUM 8.9 mg/dL (8.5-10.1); CREATININE 1.1 mg/dL (0.6-1.0); POTASSIUM 3.9 mmol/L (3.5-5.1)
[2016-12-18 04:43] VITALS: BP 151/56
[2016-12-18 08:00] VITALS: BP 166/122
[2016-12-18 08:19] LABS: ABG SAMPLE TYPE ARTERIAL; HCO3 32.6 mmol/L (22.0-26.0); LACTATE 1.46 mmol/L (0.5-2.0); O2Hb 89.2 % (92.0-98.0); PCO2 55.8 mmHg (35.0-45.0); PO2 59.1 mmHg (80.0-100.0); STICK SITE R.RADIAL; pH 7.385 (7.360-7.450); sO2 89.8 % (92.0-98.0); tCO2 34.4 mmol/L (24.0-30.0)
[2016-12-18 11:52] VITALS: BP 118/78; BP 147/90
[2016-12-18 15:39] VITALS: BP 169/95
[2016-12-18 20:00] VITALS: BP 134/79
[2016-12-19] VITALS (15 sets, daily range): BP systolic 95–186; BP diastolic 62–98
[2016-12-19 06:58] LABS: ABG SAMPLE TYPE ARTERIAL; BE(vivo) 10.1 mmol/L (-2 to +3); HCO3 40.9 mmol/L (22.0-26.0); LACTATE 0.79 mmol/L (0.5-2.0); O2(CT) 18.4 mL/dL (15.0-23.0); O2Hb 94.5 % (92.0-98.0); PO2 87.6 mmHg (80.0-100.0); sO2 94.9 % (92.0-98.0); tCO2 43.6 mmol/L (24.0-30.0)
[2016-12-19 06:59] LABS: PCO2 90.4 mmHg (35.0-45.0); STICK SITE L.RADIAL; pH 7.273 (7.360-7.450)
[2016-12-19] MEDS ORDERED: APAP650 PO (09:03)
[2016-12-19] MEDS ORDERED: ENOXAPARIN40 MG/0.1 SUBQ (11:27)
[2016-12-19] MEDS ORDERED: SOLU-MEDRO40 MG/1 M2 IV PUSH (11:28)
[2016-12-19] MEDS ORDERED: ADULT LOW DOSE81 MG PO (11:28)
[2016-12-19] MEDS ORDERED: AZITHROMYCIN 2250 MG PO (11:29)
[2016-12-19] MEDS ORDERED: ROCEPHIN 11 GM/1001 IV (11:29)
[2016-12-19 11:53] LABS: ABG SAMPLE TYPE ARTERIAL; HCO3 37.2 mmol/L (22.0-26.0); LACTATE 0.99 mmol/L (0.5-2.0); O2(CT) 17.8 mL/dL (15.0-23.0); O2Hb 92.9 % (92.0-98.0); PCO2 68.7 mmHg (35.0-45.0); PO2 70.8 mmHg (80.0-100.0); STICK SITE L.RADIAL; pH 7.352 (7.360-7.450); sO2 92.9 % (92.0-98.0); tCO2 39.4 mmol/L (24.0-30.0)
[2016-12-19 11:54] LABS: ABG COMMENT BIPAP 16/6 R14
[2016-12-19 15:57] LABS: HEMATOCRIT 39.4 % (37.0-47.0); HEMOGLOBIN 12.7 gm/dL (12.0-15.0); MCH 30.6 pg (26.0-34.0); MCHC 32.2 g/dL (28.0-37.0); MCV 95.1 fL (80.0-100.0); RBC 4.14 mil/uL (4.20-5.00); RDW 14.1 % (10.5-14.5)
[2016-12-19 16:08] LABS: CALCIUM 8.8 mg/dL (8.5-10.1); CREATININE 0.7 mg/dL (0.6-1.0); POTASSIUM 4.1 mmol/L (3.5-5.1)
[2016-12-19 16:12] LABS: ALBUMIN 3.1 g/dL (3.4-5.0); PHOSPHORUS 3.5 mg/dL (2.5-4.9)
[2016-12-19 17:46] LABS: ABG SAMPLE TYPE ARTERIAL; BE(vivo) 9.4 mmol/L (-2 to +3); HCO3 37.6 mmol/L (22.0-26.0); LACTATE 1.23 mmol/L (0.5-2.0); O2(CT) 16.7 mL/dL (15.0-23.0); O2Hb 88.6 % (92.0-98.0); PCO2 69.1 mmHg (35.0-45.0); PO2 60.2 mmHg (80.0-100.0); STICK SITE L.RADIAL; pH 7.354 (7.360-7.450); tCO2 39.8 mmol/L (24.0-30.0)
[2016-12-19 17:47] LABS: FIO2 35 %; Pressure Support 20 cm H20
[2016-12-20] VITALS (24 sets, daily range): BP systolic 117–168; BP diastolic 58–98
[2016-12-21] VITALS (15 sets, daily range): BP systolic 123–219; BP diastolic 51–186
[2016-12-21 05:23] LABS: HEMATOCRIT 39.7 % (37.0-47.0); HEMOGLOBIN 12.6 gm/dL (12.0-15.0); MCH 30.1 pg (26.0-34.0); MCHC 31.8 g/dL (28.0-37.0); MCV 94.8 fL (80.0-100.0); RBC 4.19 mil/uL (4.20-5.00); RDW 14.4 % (10.5-14.5); WBC 8.7 thou/uL (4.0-11.0)
[2016-12-21 05:39] LABS: CALCIUM 8.8 mg/dL (8.5-10.1); CREATININE 0.7 mg/dL (0.6-1.0); POTASSIUM 3.5 mmol/L (3.5-5.1)
[2016-12-21 08:30] LABS: ABG SAMPLE TYPE ARTERIAL; BE(vivo) 8.8 mmol/L (-2 to +3); HCO3 34.5 mmol/L (22.0-26.0); O2(CT) 18.1 mL/dL (15.0-23.0); O2Hb 92.8 % (92.0-98.0); PCO2 51.5 mmHg (35.0-45.0); PO2 69.1 mmHg (80.0-100.0); STICK SITE R.RADIAL; pH 7.444 (7.360-7.450); sO2 94.2 % (92.0-98.0); tCO2 36.1 mmol/L (24.0-30.0)
[2016-12-22] VITALS (7 sets, daily range): BP systolic 151–195; BP diastolic 61–85
[2016-12-22 05:28] LABS: ABG SAMPLE TYPE ARTERIAL; BE(vivo) 7.6 mmol/L (-2 to +3); HCO3 34.8 mmol/L (22.0-26.0); LACTATE 1.43 mmol/L (0.5-2.0); O2Hb 89.1 % (92.0-98.0); PCO2 59.3 mmHg (35.0-45.0); PO2 59.5 mmHg (80.0-100.0); pH 7.386 (7.360-7.450); sO2 89.8 % (92.0-98.0); tCO2 36.6 mmol/L (24.0-30.0)
[2016-12-22 05:29] LABS: STICK SITE R.BRACHIAL
[2016-12-23 03:27] VITALS: BP 188/77
[2016-12-23 06:31] LABS: HEMATOCRIT 40.5 % (37.0-47.0); HEMOGLOBIN 12.8 gm/dL (12.0-15.0); MCH 29.7 pg (26.0-34.0); MCHC 31.5 g/dL (28.0-37.0); MCV 94.2 fL (80.0-100.0); PLATELET COUNT 295 thou/uL (150-400); RDW 14.3 % (10.5-14.5); WBC 7.6 thou/uL (4.0-11.0)
[2016-12-23 06:33] LABS: MANUAL DIFF YES
[2016-12-23 06:42] LABS: CALCIUM 8.8 mg/dL (8.5-10.1); CREATININE 0.8 mg/dL (0.6-1.0); POTASSIUM 3.6 mmol/L (3.5-5.1)
[2016-12-23 08:01] VITALS: BP 141/76
[2016-12-23 08:46] LABS: ABSOLUTE NEUTROPHILS 6.7 thou/uL (1.4-8.2); ATYPICAL LYMPHS 2 %; TOTAL CELL COUNT 100
[2016-12-23 11:53] VITALS: BP 196/87
[2016-12-23 17:19] VITALS: BP 181/92
[2016-12-23 20:00] VITALS: BP 140/48
[2016-12-24 04:00] VITALS: BP 165/65
[2016-12-24 07:45] VITALS: BP 176/95
[2016-12-24 11:04] VITALS: BP 156/69
[2016-12-24 15:11] VITALS: BP 156/75
[2016-12-24 19:31] VITALS: BP 174/78
[2016-12-25] VITALS (7 sets, daily range): BP systolic 154–196; BP diastolic 65–100
[2016-12-25 06:42] LABS: HEMATOCRIT 40.5 % (37.0-47.0); HEMOGLOBIN 12.9 gm/dL (12.0-15.0); MCHC 31.8 g/dL (28.0-37.0); MCV 94.4 fL (80.0-100.0); RBC 4.29 mil/uL (4.20-5.00); RDW 14.3 % (10.5-14.5); WBC 7.7 thou/uL (4.0-11.0)
[2016-12-25 06:59] LABS: CALCIUM 8.9 mg/dL (8.5-10.1); CREATININE 0.7 mg/dL (0.6-1.0); POTASSIUM 3.5 mmol/L (3.5-5.1)
[2016-12-25] MEDS ORDERED: PREDNISONE 20 M20 M1 PO (12:36)
[2016-12-25] MEDS ORDERED: ACETAMINOPHEN325 M1 PO (12:36)
[2016-12-25] MEDS ORDERED: K-DUR10 MEQ PO (12:36)
[2016-12-25] MEDS ORDERED: CARVEDILOL12.5 MG PO (12:36)
[2016-12-25] MEDS ORDERED: TRAMADOL 50 MG50 MG PO (12:36)
[2016-12-26 04:00] VITALS: BP 181/78
[2016-12-26 07:36] VITALS: BP 147/66
== END 2016-12-26 13:35 | DRG 189 ==
LOC: ER 12:01 → 2N 15:01 → EROBS 15:01 → 2N 17:26 → ICU 12-19 17:21 → 3W 12-21 10:18
PROVIDERS: Emergency Medicine; Internal Medicine Geriatric Medicine; Internal Medicine Pulmonary Disease
PROC: 5A09357 Assistance with Respiratory Ventilation, Less than 24 Consecutive Hours, Continuous Positive Airway Pressure (ICD-10-PCS; principal; 2016-12-21)
DX: J96.21 Acute and chronic respiratory failure with hypoxia (principal); G93.41 Metabolic encephalopathy; J44.1 Chronic obstructive pulmonary disease with (acute) exacerbation; M87.9 Osteonecrosis, unspecified; N39.0 Urinary tract infection, site not specified; R44.3 Hallucinations, unspecified; R65.10 Systemic inflammatory response syndrome (SIRS) of non-infectious origin without acute organ dysfunction; Z23 Encounter for immunization; J96.22 Acute and chronic respiratory failure with hypercapnia; I10 Essential (primary) hypertension; E78.5 Hyperlipidemia, unspecified; M06.9 Rheumatoid arthritis, unspecified; I25.10 Atherosclerotic heart disease of native coronary artery without angina pectoris; R41.0 Disorientation, unspecified; F03.90 Unspecified dementia, unspecified severity, without behavioral disturbance, psychotic disturbance, mood disturbance, and anxiety; Z60.2 Problems related to living alone; G47.33 Obstructive sleep apnea (adult) (pediatric); E11.9 Type 2 diabetes mellitus without complications; G89.29 Other chronic pain; M54.9 Dorsalgia, unspecified; K57.90 Diverticulosis of intestine, part unspecified, without perforation or abscess without bleeding; M51.36 Other intervertebral disc degeneration, lumbar region; Z95.1 Presence of aortocoronary bypass graft; Z90.49 Acquired absence of other specified parts of digestive tract; I25.2 Old myocardial infarction; Z88.6 Allergy status to analgesic agent; Z88.8 Allergy status to other drugs, medicaments and biological substances; Z87.891 Personal history of nicotine dependence; Z79.899 Other long term (current) drug therapy
CPT/HCPCS: 10078; 10081; 10779